=== PATIENT | male | born 1955 | race Caucasian/White ===

== ENCOUNTER 2024-06-12 00:23 | Emergency (ER) | payer BC, SELFPAY ==
--- OUTSIDE RECORDS SUMMARY | 2024-06-12 00:26 | XMS_ITS | Clinical Summary ---
Author Organization [facility] Address [address] [place] [address] Care Team Providers Care Loop Sewer Name Role Phone Unavailable Primary Care Provider Unavailabl e Source Comments Patient records contain information from all sites at [facility]. For routine questions regarding patient records, call [phone] during business hours, M-F 8:00 AM - 5:00 PM Central Time. Record requests for emergency care only can be directed to [phone] at any time.[facility] Allergies Active Allergy Reactions Criticality Noted Date Comments Adhesive Tape-Silicones Rash 06/25/2014 Oxycodone Other (see comments) 09/19/2015 Frequent hiccups. Medications lisinopriL (PRINIVIL,ZESTRI L) 20 mg tablet Take 20 mg by mouth daily. 02/22/2023 Active Social History Tobacco Use Types Packs/Day Years Used Date Smoking Tobacco: Never Smokeless Tobacco: Never Alcohol Use Standard Drinks/Week Comments Yes 5 (1 standard drink = 0.6 oz pur e alcohol) weekly Social Connection and Isolat ion Panel [NHANES] Answer Date Recorded In a typical week, how many times do you talk on the phone with family, friends, or neighbors? More than three times a week 01/24/2020 How often do you get togethe r with friends or relatives? More than three times a week 01/24/2020 How often do you attend [facility] or evangelical services? More than 4 times per year 01/24/2020 Do you belong to any clubs o r organizations such as mormon groups, unions, fraternal or athletic groups, or school groups? Yes 01/24/2020 How often do you attend meet ings of the clubs or organizations you belong to? More than 4 times per year 01/24/2020 Are you , , di vorced, , never , or living with a partner? 01/24/2020 AUDIT-C Answer Date Recorded Q1: How often do you have a drink containing alc ohol? 2-3 times a week 01/24/2020 Q2: How many drinks containi ng alcohol do you have on a typical day when you are drinking? Patient declined 01/24/2020 Q3: How often do you have si x or more drinks on one occasion? Never 01/24/2020 Overall Financial Resource Strain (CARDIA) Answe r Date Recorded How hard is it for you to pa y for the very basics like food, housing, medical care, and heating? Not hard at all 02/22/2023 Exercise Vital Sign Answer Date Recorde d On average, how many days pe r week do you engage in moderate to strenuous exercise (like a brisk walk)? Patient declined On average, how many minutes do you engage in exercise at this level? Patient declined 02/22/2023 Hunger Vital Sign Answer Date Recorded Within the past 12 months, y ou worried that your food would run out before you got the money to buy more. Never true 02/23/20 23 Within the past 12 months, t he food you bought just didn't last and you didn't have money to get more. Never true 02/22/2023 PRAPARE - Transportation Answer Date Re corded In the past 12 months, has l ack of transportation kept you from medical appointments or from getting medications? No 10/2022 In the past 12 months, has l ack of transportation kept you from meetings, work, or from getting things needed for daily living? No 02/22/2023 Nutrition Answer Date Recorded Nutrition: EVOO Fat Source Unknown 02/22 On average, how many serving s of fruits and vegetables do you eat per day (serving size is equal to 1 cup or approximately the size of a tennis ball)? 0-2 02/22/2023 Dental Answer Date Recorded Dental: Regular Dentist Yes 02/23/20 Employment Answer Date Recorded Employment status Employed and actively working without restrictions 02/22/2023 Housing Stability Answer Date Recorded What is your living situation today? I have a [facility] place to live 02/22/2023 Education Answer Date Recorded What is the highest level of school you have completed or the highest degree you have received? Bachelor's degree (e.g., BA, AB, BS) 01/24/2020 Sex and Gender Information Value Date Recorded Sex Assigned at Male 05/18/2019 9:54 AM SORTER PACKER Legal Sex Male 11:58 PM SORTER PACKER Gender Identity Male 05/18/2019 9:54 AM SORTER PACKER Sexual Orientation Straight 05/18/2019 9: 54 AM SORTER PACKER Last Filed Vital Signs Vital Sign Reading Time Taken Comments Blood Pressure 154/88 02/24/2023 7:56 AM SORTER PACKER Pulse 80 02/24/2023 7:56 AM SORTER PACKER Temperature 36.3 C (97.3 F) 01/25/2020 2:47 PM CDT Respiratory Rate 11 01/25/2020 2:50 PM CDT Oxygen Saturation 94% 01/25/2020 2:50 PM CDT Inhaled Oxygen Concentration - - Weight 112 kg (246 lb 0.5 oz) 02/24/2023 7:56 AM SORTER PACKER Height 175.9 cm (5' 9.25) 02/24/2023 7:56 AM CS T Body Mass Index 36.07 02/24/2023 7:56 AM SORTER PACKER Plan of Treatment Health Maintenance Due Date Last Done Comments CT Colonography 1955 Cologuard 1955 Hepatitis C Screening 1955 Office Visit for Blood Pressure Check / Re-check 05/27/2023 02/24/2023 COVID-19 Vaccine ( season) 2023 03/14/2021, 07/25/2020, 07/04/2020 Influenza Vaccine (#1) 2024 , 03/08/2014, 03/06/2010 Depression Screening (Annual PHQ-2) 04/18/2024 Fall Risk Screen (Annual) 04/18/2024 Creatinine Level (Kidney Function Test) 04/26/2024 04/26/2023, 02/23/2022, 08/06/2020, Additional history exists Potassium Level 04/26/2024 04/26/2023, 11/2021, 08/06/2020, Additional history exists Sodium Level 04/26/2024 04/26/2023, 11/2021, 05/08/2020, Additional history exists Colonoscopy 01/24/2025 01/25/2020, 12/2019, 01/14/2015, Additional history exists Colorectal Cancer Surveillance 01/24/2025 Fasting Glucose for Diabetes Screening 04/26/2026 04/26/2023, 02/23/2022, 05/08/2020, Additional history exists DTaP,Tdap,and Td Vaccines (3 - Td or Tdap) 04/24/2030 04/24/2020, 07/29/2009 Zoster Vaccines Completed 04/24/2020, 02/15/2020 Pneumococcal vaccine (50+ years) Completed 02/23/2022 IPV Vaccines Aged Out No longer eligi ble based on patient's age to complete this topic Medical Devices Implanted Type Area Shrimp Peeling Machine Tender Device Identifier Shelf Expiration Date Model / Serial / Lot Bionic Eye Implant Bionic Eye Implant Eye Conversions - Default Historical Implant Device Implanted:06/25 (Quantity not on file) Hip Implant Right: Hip Description:Body Location - Hip R. Device Status Text - Hip Imp. Procedures Procedure Name Priority Date/Time Associated Diagnosis Comments COLONOSCOPY Routine 01/25/2020 2:11 PM CDT Screening Cancer Colon from Last 3 Months or Most Recently Relevant to Health Maintenance Insurance [employer]
--- OUTSIDE RECORDS SUMMARY | 2024-06-12 00:26 | XMS_ITS | Clinical Summary ---
Author Organization [employer] [facility] Address [facility]ly [facility] [place] [address] Care Team Providers Care District Sales Coordinator Name Role Phone Votel, Will Chowdary MD Primary Care Provider + Allergies Active Allergy Reactions Criticality Noted Date Comments Adhesive Other - Describe In Comment Field 09/05/2015 Skin blistering Oxycodone Other - Describe In Comment Field 09/19/2015 Frequent hiccups. 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 Immunizations Name Administration Dates Next Due COVID-19 vaccine ([employer] 30mcg/0.3mL) P F, MDV 07/25/2020,07/04/2020 Influenza, IIV3 (Age 6-35 mos) 03/06/2010 Influenza, IIV4 03/08/2014 Influenza, Inactivated AIIV4 (Age 65+ Years) Preserv Free 02/23/2022 Pneumococcal Conj 20-valent (Prevnar 20) 022 Td (Age >=7 Years) 04/24/2020 Tdap 07/29/2009 Zoster (Shingrix-RZV, recombinant) 04/24/2020, Family History Medical History Relation Name Comments Lung cancer Mother Other No Family History No family history of ENT problems Relation Name Status Comments Father Mother Social History Tobacco Use Types Packs/Day Years Used Date Smoking Tobacco: Never Smokeless Tobacco: Never Tobacco Cessation:Counseling Given: Yes Alcohol Use Standard Drinks/Week Comments Yes 6 (1 standard drink = 0.6 oz pur e alcohol) occas PHQ-2 Answer Date Recorded PHQ-2 TOTAL SCORE 0 04/26/2023 Social Connections Answer Date Recorded Do you often feel lonely or isolated from those around you? 0 04/26/2023 Financial Resource Strain Answer Date R ecorded Difficulty of Paying Living Expenses 3 04/26/2023 Difficulty of Paying Living Expenses Not on file 04/26/2023 Food Insecurity Answer Date Recorded Do you worry your food will run out before you are able to buy more? 1 04/26/2023 Transportation Needs Answer Date Record ed Does lack of transportation keep you from medica l appointments? 1 04/26/2023 Does lack of transportation keep you from work, meetings or getting things that you need? 1 04/26/2023 Housing Stability Answer Date Recorded What is your housing situation today? 1 04/26/2023 Utilities Answer Date Recorded Do you have trouble paying f or utilities (for example, heat, electricity, water, phone)? 1 04/26/2023 Sex and Gender Information Value Date Recorded Sex Assigned at Not on file Legal Sex Male 7:09 AM APPAREL RENTAL CLERK Gender Identity Not on file Sexual Orientation Not on file Obstetrics History Last Filed Vital Signs Vital Sign Reading Time Taken Comments Blood Pressure 172/97 04/26/2023 4:38 PM APPAREL RENTAL CLERK Pulse 62 04/26/2023 4:38 PM APPAREL RENTAL CLERK Temperature 36.5 C (97.7 F) 08/06/2020 3:25 PM CDT Respiratory Rate 18 11/18/2021 1:01 PM CDT Oxygen Saturation 99% 04/26/2023 4:38 PM APPAREL RENTAL CLERK Inhaled Oxygen Concentration - - Weight 110.9 kg (244 lb 8 oz) 04/26/2023 4:38 PM APPAREL RENTAL CLERK Height 175.3 cm (5' 9) 04/26/2023 4:38 PM APPAREL RENTAL CLERK Body Mass Index 36.11 04/26/2023 4:38 PM APPAREL RENTAL CLERK Plan of Treatment Health Maintenance Due Date Last Done Comments Hepatitis C screening for ag e 18-79 1974 COVID-19 vaccine series ( season) 2023 03/14/2021, 07/25/2020, 07/04/2020 Influenza for age 65+ 12/18/2023 02/23/2022, 014 BMI (ht and wt on same day) for age 18+ 04/26/2024 04/26/2023, 02/23/2022, 11/06/2020, Additional history exists Depression screening for age 12+ 04/26/2024 04/26/2023, 02/23/2022, 04/24/2020, Additional history exists Colonoscopy through age 75 01/24/202501/24 ([facility]) Lipids for age 45-75 04/26/2028 04/26/2023, 02/23/2022, 05/08/2020, Additional history exists Tetanus booster 04/24/2030 04/24/2020, 07/29/2009 RSV vaccine for adults or (1 - 1-dose 75+ series) 2031 Tdap Completed 07/29/2009 Zoster (shingles) series for age 50+ Completed 04/24/2020, 02/15/2020 Pneumococcal series for age 50+ Completed 2 Procedures Procedure Name Priority Date/Time Associated Diagnosis Comments LIPID PANEL W REFLEX MEASURED LDL Routine 04/26/2023 5:12 PM APPAREL RENTAL CLERK Screening cholesterol level from Last 3 Months or Most Recently Relevant to Health Maintenance Results * (ABNORMAL) LIPID PANEL W REFLEX MEASURED LDL (04/26/2023 5:12 PM APPAREL RENTAL CLERK) CHOLESTEROL,TOTAL 230(H) 100 - 199 mg/dL 04/27/2023 2:10 PM APPAREL RENTAL CLERK [facility] Comment: Cholesterol, Total Reference Ranges Desirable <200 mg/dL Borderline 200-239 mg/dL High >=240 mg/dL TRIGLYCERIDES 136 <150 mg/dL 04/27/2023 2:10 PM APPAREL RENTAL CLERK [facility] HDL CHOLESTEROL 40(L) >40 mg/dL 2:10 PM APPAREL RENTAL CLERK [facility] NON-HDL CHOLESTEROL 190(H) <145 mg/dl 04/27/2023 2:10 PM APPAREL RENTAL CLERK [facility] CHOL/HDL RATIO 5.75(H) <4.50 04/27/2023 2:10 PM APPAREL RENTAL CLERK [facility] LDL CHOLESTEROL 163(H) <=130 mg/dL 04/27/2023 2:10 PM APPAREL RENTAL CLERK [facility] VLDL CHOLESTEROL 27 <=30 mg/dL 04/27/2023 2:10 PM APPAREL RENTAL CLERK [facility] PROVIDER ORDERED STATUS RANDOM 04/27/2023 2:10 PM APPAREL RENTAL CLERK [facility] Blood BLOOD SPECIMEN / Unknown Venipuncture / Unknown 04/26/2023 5:12 PM APPAREL RENTAL CLERK 04/26/2023 5:12 PM APPAREL RENTAL CLERK Will Najera MD CHEMISTRY Final Re sult [facility] [address] [place] [phone], from Last 3 Months or Most Recently Relevant to Health Maintenance Insurance [facility] Care Teams District Sales Coordinator Relationship Specialty Start Date End Date Votel, Will Chowdary MD [address] [place] [address] PCP - General Family Practice 02/23/22
[2024-06-12 00:43] VITALS: BP 130/85; PULSE 78; RESP 16; TEMP 36.6; O2SAT 96; BMI 35.4
--- NOTE | 2024-06-12 00:47 | CRLHL7_ITS ---
For Patients: As a result of the Century Cures Act, medical imaging exams and procedure reports are released immediately into your electronic medical record. You may view this report before your referring provider. If you have questions, please contact your health care provider. INDICATION: Cough for 7 days, gotten worse over last 2 days TECHNIQUE: Chest radiograph 2 views COMPARISON: None FINDINGS: The sensitivity and specificity of the exam are moderately limited by the patient`s body hab Mediastinum: The mediastinum is normal in appearance. The heart silhouette is normal in size and morphology. Lung: Both lungs are unremarkable in appearance with small lung volumes. No sign of pleural effusion seen. No pneumothorax is identified. Bone and Soft tissue: Unremarkable for age. IMPRESSION: 1. No acute cardiopulmonary disease is seen. Dictated by: Maurilio Shaffer MD @ 06/12/2024 01:02:12 (Electronically Signed)
[2024-06-12 01:28] VITALS: BP 130/85; PULSE 78; RESP 16; TEMP 36.6
[2024-06-12 01:33] LABS: PCR FLU A Negative PCR FLU A (Negative); PCR FLU B Negative PCR FLU B (Negative); PCR RSV POSITIVE PCR RSV (Negative); SARS PCR* Negative SARS-CoV-2 (Negative)
--- OUTSIDE RECORDS SUMMARY | 2024-06-12 01:35 | XMS_ITS | Clinical Summary ---
Author Organization [facility] Address [address] [place] [address] Care Team Providers Care Lean Sensei Name Role Phone Unavailable Primary Care Provider Unavailabl e Source Comments Patient records contain information from all sites at [facility]. For routine questions regarding patient records, call [phone] during business hours, M-F 8:00 AM - 5:00 PM Central Time. Record requests for emergency care only can be directed to [phone] at any time.[facility] Allergies Active Allergy Reactions Criticality Noted Date [...] week 01/24/2020 How often do you attend [facility] or zoroastrian services? More than 4 times per year 01/24/2020 Do you belong to any clubs o r organizations such as evangelical groups, unions, fraternal or athletic groups, or [...] Sex Assigned at Male 05/18/2019 9:54 AM ROLL SHEETING CUTTER Legal Sex Male 11:58 PM ROLL SHEETING CUTTER Gender Identity Male 05/18/2019 9:54 AM ROLL SHEETING CUTTER Sexual Orientation Straight 05/18/2019 9: 54 AM ROLL SHEETING CUTTER Last Filed Vital Signs Vital Sign Reading Time Taken Comments Blood Pressure 154/88 02/24/2023 7:56 AM ROLL SHEETING CUTTER Pulse 80 02/24/2023 7:56 AM ROLL SHEETING CUTTER Temperature 36.3 C (97.3 F) 01/25/2020 2:47 PM CDT Respiratory Rate 11 01/25/2020 2:50 PM CDT Oxygen Saturation 94% 01/25/2020 2:50 PM CDT Inhaled Oxygen Concentration - - Weight 112 kg (246 lb 0.5 oz) 02/24/2023 7:56 AM ROLL SHEETING CUTTER Height 175.9 cm (5' 9.25) 02/24/2023 7:56 AM CS T Body Mass Index 36.07 02/24/2023 7:56 AM ROLL SHEETING CUTTER Plan of Treatment Health Maintenance Due Date [...] this topic Medical Devices Implanted Type Area Schedule Planning Manager Device Identifier Shelf Expiration Date Model / [...]
--- OUTSIDE RECORDS SUMMARY | 2024-06-12 01:35 | XMS_ITS | Clinical Summary ---
Author Organization [facility] Address [facility] [place] [address] Care Team Providers Care Rap Artist Name Role Phone Votel, Will hCowdary MD Primary Care Provider + Allergies Active [...] Name Administration Dates Next Due COVID-19 vaccine ([employer] 30mcg/0.3mL) P F, MDV 07/25/2020,07/04/2020 Influenza, IIV3 [...] on file Legal Sex Male 7:09 AM EVENTS TRAFFIC CONTROLLER Gender Identity Not on file Sexual Orientation Not on file Obstetrics History Last Filed Vital Signs Vital Sign Reading Time Taken Comments Blood Pressure 172/97 04/26/2023 4:38 PM EVENTS TRAFFIC CONTROLLER Pulse 62 04/26/2023 4:38 PM EVENTS TRAFFIC CONTROLLER Temperature 36.5 C (97.7 F) 08/06/2020 3:25 PM CDT Respiratory Rate 18 11/18/2021 1:01 PM CDT Oxygen Saturation 99% 04/26/2023 4:38 PM EVENTS TRAFFIC CONTROLLER Inhaled Oxygen Concentration - - Weight 110.9 kg (244 lb 8 oz) 04/26/2023 4:38 PM EVENTS TRAFFIC CONTROLLER Height 175.3 cm (5' 9) 04/26/2023 4:38 PM EVENTS TRAFFIC CONTROLLER Body Mass Index 36.11 04/26/2023 4:38 PM EVENTS TRAFFIC CONTROLLER Plan of Treatment Health Maintenance Due Date [...] through age 75 01/24/202501/24 ([facility] Lipids for age 45-75 04/26/2028 04/26/2023, 02/23/2022, [...] REFLEX MEASURED LDL Routine 04/26/2023 5:12 PM EVENTS TRAFFIC CONTROLLER Screening cholesterol level from Last 3 Months or Most Recently Relevant to Health Maintenance Results * (ABNORMAL) LIPID PANEL W REFLEX MEASURED LDL (04/26/2023 5:12 PM EVENTS TRAFFIC CONTROLLER) CHOLESTEROL,TOTAL 230(H) 100 - 199 mg/dL 04/27/2023 2:10 PM EVENTS TRAFFIC CONTROLLER [email or web address] Comment: Cholesterol, Total Reference Ranges Desirable <200 mg/dL Borderline 200-239 mg/dL High >=240 mg/dL TRIGLYCERIDES 136 <150 mg/dL 04/27/2023 2:10 PM EVENTS TRAFFIC CONTROLLER [facility] [email or web address] [facility] HDL CHOLESTEROL 40(L) >40 mg/dL 2:10 PM EVENTS TRAFFIC CONTROLLER [facility] NON-HDL CHOLESTEROL 190(H) <145 mg/dl 04/27/2023 2:10 PM EVENTS TRAFFIC CONTROLLER [facility] CHOL/HDL RATIO 5.75(H) <4.50 04/27/2023 2:10 PM EVENTS TRAFFIC CONTROLLER [facility] LDL CHOLESTEROL 163(H) <=130 mg/dL 04/27/2023 2:10 PM EVENTS TRAFFIC CONTROLLER [facility] VLDL CHOLESTEROL 27 <=30 mg/dL 04/27/2023 2:10 PM EVENTS TRAFFIC CONTROLLER [facility] PROVIDER ORDERED STATUS RANDOM 04/27/2023 2:10 PM EVENTS TRAFFIC CONTROLLER [facility] Blood BLOOD SPECIMEN / Unknown Venipuncture / Unknown 04/26/2023 5:12 PM EVENTS TRAFFIC CONTROLLER 04/26/2023 5:12 PM EVENTS TRAFFIC CONTROLLER Will Najera MD CHEMISTRY Final Re sult [facility] [address] [place] [phone], from Last 3 Months or Most Recently Relevant to Health Maintenance Insurance [facility] Care Teams Rap Artist Relationship Specialty Start Date End Date Votel, Will Chowdary MD [address] [place] [address] PCP - General Family Practice 02/23/22
--- NOTE | 2024-06-12 02:26 | ED_ITS ---
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 Nonsmoker, no leg swelling, no history DVTs or pulmonary emboli no heart history. MD elicited complaint: cough Context: recent illness Timing: constant and progressively worsening Severity: moderate Relieving factors: upright position Associated symptoms: cough and sputum production Treatment prior to arrival: none Related Data Home oxygen amount: none Home Medications ?Medication ?Instructions ?Recorded ?Confirmed lisinopril 20 mg tablet 20 mg PO DAILY 06/12/24 06/12/24 tobramycin 0.3 % eye drops 1 drp ophthalmic (eye) 06/12/24 Allergies Allergy/AdvReac Type Severity Reaction Status Date / Time hydrocodone AdvReac Verified 06/12/24 00:46 Review of Systems Status of ROS: Reports: 10 or more systems reviewed and unremarkable except as noted in History and below PFSH PFS Social History Do you use any of these nicotine containing products: None How often do you have a drink containing alcohol: monthly or less How many standard drinks containing alcohol do you have on a typical day: 1 or 2 AUDIT-C Alcohol total score: 1 Non-prescribed substance use: denies use Exam Narrative: Exam Narrative: He is seen in room 5, he is in no apparent distress speaking to me normally, does have an occasional cough, but clearly no shortness of breath pupils equal round reactive to light there is no scleral icterus redness TMs are normal oropharynx normal there is no adenopathy anterior posterior chains his chest is good air entry bilaterally with no wheezing crackles noted no signs respiratory distress, heart sounds no clicks murmurs or gallops, abdomen is soft there is no guarding no organomegaly no tenderness to palpation skin was no petechiae rashes, he has negative Homans sign and no swelling at all of his legs bilaterally. Const: Vital Signs, click to edit/add: Vital Signs - 24 hr 06/12/24 00:43 06/12/24 01:28 Temperature 98 F 98 F Pulse Rate [Pulse Oximeter] 78 78 Respiratory Rate 16 16 Blood Pressure [Ri ght Upper Arm] 130/85 130/85 Pulse Oximetry 96 Oxygen Delivery Me thod Room Air Documenting provider has reviewed patient's vital signs: yes Course Course ED Course: I did discuss with him, symptomatic measures for his likely postnasal drip and possible early sinusitis, he would like antibiotics and we did prescribe him some Zithromax for this, I think for his RSV however this has to run its course, he has good vital signs now nontoxic, we went over signs and symptoms of worsening and when he should be re-evaluated he was comfortable this plan. Vital Signs Vital signs: Initial Vital Signs Temperature 98 F 06/12/24 00:43 Temperature Source Temporal Artery Scan 06/12/24 00:43 Pulse Rate 78 06/12/24 00:43 Respiratory Rate 16 06/12/24 00:43 Blood Pressure 130/85 06/12/24 00:43 Blood Pressure Mean 100 06/12/24 00:43 Blood Pressure Position Sitting 06/12/24 00:43 Pulse Oximetry 96 06/12/24 00:43 Oxygen Delivery Method Room Air 06/12/24 00:43 Vital Signs Temperature 98 F 06/12/24 00:43 Pulse Rate 78 06/12/24 00:43 Respiratory Rate 16 06/12/24 00:43 Blood Pressure 130/85 06/12/24 00:43 Pulse Oximetry 96 06/12/24 00:43 Oxygen Delivery Method Room Air 06/12/24 00:43 Temperature 98 F 06/12/24 01:28 Pulse Rate 78 06/12/24 01:28 Respiratory Rate 16 06/12/24 01:28 Blood Pressure 130/85 06/12/24 01:28 Pulse Oximetry 96 06/12/24 00:43 Oxygen Delivery Method Room Air 06/12/24 00:43 MDM - SOB/Dyspnea MDM Narrative Medical decision making narrative: Differential diagnosis include a viral upper respiratory illness, histoplasmosis, tuberculosis, pneumonia, COPD exacerbation, emphysema, strep throat illness, bronchitis, asthma, reactive airway disease, chronic cough, medication side effects, allergic rhinitis with postnasal drip, foreign body aspiration, aspiration pneumonia, bronchiolitis, and gastroesophageal reflux disease as well as multiple other considerations. Medical Records Attestation: I reviewed the patient's medical records. Lab Data Attestation: I reviewed the patient's lab results. Labs: Lab Results 06/12/24 Range/Units 00:47 SARS-CoV-2 (PCR) Negative SARS-CoV-2 (Negative) Influenza Type A (PCR) Negative PCR FLU A (Negative) Influenza Type B (PCR) Negative PCR FLU B (Negative) RSV (PCR) POSITIVE PCR RSV A (Negative) I did call him with the results and informed him it is RSV was positive, Discharge Plan Discharge Clinical Impression: Cough, Bronchitis Patient Disposition: Home w/ Parent or Adult Condition: Stable Instructions: Acute Bronchitis (ED), Acute Cough (ED) Additional Instructions: home,rest and antibiotics as directed. With any worsening, chest pain shortness of breath or other symptoms, cold mist to is also helpful. Activity Level: No Restrictions Discharge Diet: Regular Prescriptions: No Action lisinopril 20 mg tablet 20 mg PO DAILY tobramycin 0.3 % drops 1 drp ophthalmic (eye) Stand Alone Forms: [employer] Info Instructions
== END 2024-06-12 01:33 | disposition home or self-care (01) ==
LOC: ED 01:33
PROVIDERS: Emergency Provider Family Medicine
DX: J40 Bronchitis, not specified as acute or chronic (principal)
CPT/HCPCS: 71046; 87631; 99283; 99284